=== PATIENT | female | born 1940 | race Caucasian/White ===

== ENCOUNTER 2016-08-03 06:58 | Day surgery (SDC) | payer MEDICARE, BC, OTHER ==
--- NOTE | ~2016-08-03 | EGD ---
EGD REPORT [facility] [address] [address] NAME: SAMINA NUNEZ : [birth year] STATUS : REG [facility]#: [id number] AGE: 76 ADM/REG DATE : 08/03/16 MR#: [id number] REPORT SERV DATE: 08/03/16 DICTATED BY: CANDY SIDDIQUI DATE: 08/03/16 REPORT STATUS : Draft TRANSCRIBED BY: [employer] DATE: 08/03/16 [facility] Patient Name: Samina Nunez Date of : 1940 Attending MD: CANDY SIDDIQUI MD Procedure Date No Time: 08/03/2016 Procedure: Colonoscopy Indications: High risk colon cancer surveillance: Personal history of colonic polyps Referring MD: OCTAVIA SMITH MD Medicines: Monitored Anesthesia Care Complications: No immediate complications. Procedure: Pre-Anesthesia Assessment: - ASA Grade Assessment: II - A patient with mild systemic disease. After I obtained informed consent, the scope was passed under direct vision. Throughout the procedure, the patient's blood pressure, pulse, and oxygen saturations were monitored continuously. The CF [id number] was introduced through the anus and advanced to the cecum, identified by appendiceal orifice and ileocecal valve. The colonoscopy was performed without difficulty. The patient tolerated the procedure well. The quality of the bowel preparation was adequate. Findings: The digital rectal exam was normal. Pertinent negatives include no palpable rectal lesions. Hemorrhoids were found during retroflexion and were mild. A sessile polyp was found in the rectum. The polyp was 4 mm in size. The polyp was removed with a cold biopsy forceps. Resection and retrieval were complete. Two sessile polyps were found in the transverse colon. The polyps were 6 to 8 mm in size. These polyps were removed with a cold snare. Resection and retrieval were complete. A sessile polyp was found in the transverse colon. The polyp was 4 mm in size. The polyp was removed with a cold biopsy forceps. Resection and retrieval were complete. Impression: - Hemorrhoids. - One 4 mm polyp in the rectum. Resected and retrieved. - Two 6 to 8 mm polyps in the transverse colon. Resected and retrieved. - One 4 mm polyp in the transverse colon. Resected and retrieved. EGD REPORT [address] [place]. [address] NAME: SAMINA NUNEZ : [birth year] STATUS : REG [facility] [place] PAT#: [id number] AGE: 76 ADM/REG DATE : 08/03/16 MR#: [id number] REPORT SERV DATE: 08/03/16 DICTATED BY: CANDY SIDDIQUI DATE: 08/03/16 REPORT STATUS : Draft TRANSCRIBED BY: [employer] DATE: 08/03/16 Recommendation: - Patient has a contact number available for emergencies. The signs and symptoms of potential delayed complications were discussed with the patient. Return to normal activities tomorrow. Written discharge instructions were provided to the patient. - Regular diet. - Continue present medications. - Repeat colonoscopy in 3 - 5 years for surveillance based on pathology results. - Return to GI clinic PRN. Procedure Code(s): --- Professional --- 98830, Colonoscopy, flexible, proximal to splenic flexure; with removal of tumor(s), polyp(s), or other lesion(s) by snare technique 99834, 59, Colonoscopy, flexible, proximal to splenic flexure; with biopsy, single or multiple Diagnosis Code(s): --- Professional --- K64.9, Unspecified hemorrhoids D12.3, Benign neoplasm of transverse colon K62.1, Rectal polyp Z86.010, Personal history of colonic polyps CPT copyright 2013 [employer]. All rights reserved. The codes documented in this report are preliminary and upon durability engineer review may be revised to meet current compliance requirements. CANDY SIDDIQUI MD 08/03/2016 8:57 AM This report has been signed electronically. Number of Addenda: 0 Note Initiated On: 08/03/2016 8:31 AM [address] [id number]
[~2016-08-03 06:58] MED LIST: ASA5GR PO; B COMPLETE PO; ESTRACE1 MG PO; FOLTANX TABLET1 EACH PO; GENTEAL 15 ML O15 ML OPH; MAG6464 MG PO; MAX25 PO; METANX PO; MULTIPLE VIT PO; OS500+D PO; PREMPRO1 TAB PO; PRESERVISION A1 EAC1 PO; VITAMIN D31000 UNIT PO; ZYRTEC-D ALG PO
== END 2016-08-03 23:59 | disposition home health service (06) ==
LOC: DMU 06:58
PROVIDERS: Internal Medicine Gastroenterology
PROC: 0DBL8ZZ Excision of Transverse Colon, Via Natural or Artificial Opening Endoscopic (ICD-10-PCS; 2016-08-03)
PROC: 0DBL8ZX Excision of Transverse Colon, Via Natural or Artificial Opening Endoscopic, Diagnostic (ICD-10-PCS; principal; 2016-08-03 08:30)
PROC: 0DBP8ZX Excision of Rectum, Via Natural or Artificial Opening Endoscopic, Diagnostic (ICD-10-PCS; 2016-08-03 08:30)
DX: Z12.11 Encounter for screening for malignant neoplasm of colon (principal); K62.1 Rectal polyp; D12.3 Benign neoplasm of transverse colon; K64.9 Unspecified hemorrhoids; G43.909 Migraine, unspecified, not intractable, without status migrainosus; Z86.010 Personal history of colon polyps; Z88.8 Allergy status to other drugs, medicaments and biological substances; Z79.82 Long term (current) use of aspirin; Z79.899 Other long term (current) drug therapy; Z90.49 Acquired absence of other specified parts of digestive tract; Z90.710 Acquired absence of both cervix and uterus; Z98.890 Other specified postprocedural states
CPT/HCPCS: 88305